=== PATIENT | male | born 1980 | race Caucasian/White ===

== ENCOUNTER 2017-08-05 19:11 | Emergency (ER) | payer OTHER ==
[2017-08-05] MEDS ORDERED: Sodium Chloride 0.9% 10 ML Syringe FLUSH PRN (19:47)
[2017-08-05] MEDS ORDERED: Ondansetron 4 MG/2 ML SDV IVPUSH ONE (19:47)
[2017-08-05] MEDS ORDERED: HYDROmorphone 1 MG/ML Syringe IVPUSH ONE ×2 (20:00→21:59)
[2017-08-05] MEDS ORDERED: Sodium Chloride 0.9% 1,000 ML IV SCH (20:00)
--- NOTE | 2017-08-05 20:17 | EDM.PDOC ---
ED HPI GENERAL MEDICAL PROBLEM - General Chief Complaint: Abdominal Pain Stated Complaint: BLOOD IN URINE AND VOMMITING Time Seen by Provider: 08/05/17 19:59 Source of Information: Reports: Patient History Limitations: Reports: No Limitations - History of Present Illness INITIAL COMMENTS - FREE TEXT/NARRATIVE: Patient is a 36-year-old male with a history of kidney stones who presents to the ED complaining of right flank and right abdomen discomfort with nausea vomiting. Patient describes the pain as a stabbing, sharp, constant pain that waxes and wanes in intensity. States he's noted some pain with urination, hematuria, increased frequency and decrease amount. States he's not had a bowel movement today and hasn't been passing any gas. He has no history of abdominal surgeries. He is concerned he is passing a kidney stones. Last time he passed kidney stones was in 2001 2007. Currently has no additional past medical history and currently taking no medications. No surgical history. No primary care provider here locally. Does not smoke, utilize alcohol, or recreational drugs. He is not taking any supplements. Right Abdomen Pain Score (Numeric/FACES): 8 - Related Data Allergies Allergy/AdvReac Type Severity Reaction Status Date / Time No Known Allergies Allergy Verified 08/05/17 19:40 Home Meds: Home Meds . [No Known Home Meds] 08/05/17 [History] Past Medical History Genitourinary History: Reports: Renal Calculus Social & Family History - Tobacco Use Smoking Status *Q: Never Smoker - Caffeine Use Caffeine Use: Reports: Tea - Recreational Drug Use Recreational Drug Use: No ED ROS GENERAL - Review of Systems Review Of Systems: See Below Constitutional: Reports: Decreased Appetite. Denies: Fever HEENT: Reports: No Symptoms Respiratory: Reports: No Symptoms Cardiovascular: Reports: No Symptoms GI/Abdominal: Reports: Abdominal Pain (Right lower quadrant) : Reports: Dysuria, Flank Pain, Frequency, Hematuria Skin: Reports: No Symptoms Neurological: Reports: No Symptoms ED EXAM, GI/ABD - Physical Exam Exam: See Below Exam Limited By: No Limitations General Appearance: Alert, WD/WN, No Apparent Distress Ears: Hearing Grossly Normal Nose: Normal Inspection Throat/Mouth: Normal Voice, No Airway Compromise Neck: Normal Inspection, Supple Respiratory/Chest: No Respiratory Distress, Lungs Clear, Normal Breath Sounds, No Accessory Muscle Use, Chest Non-Tender Cardiovascular: Normal Peripheral Pulses, Regular Rate, Rhythm, No Murmur GI/Abdominal Exam: Normal Bowel Sounds, Soft, No Organomegaly, No Distention, Tender (McBurney's point and suprapubic region.) Back Exam: Normal Inspection. No: CVA Tenderness (L), CVA Tenderness (R) Neurological: Alert, Oriented, CN II-XII Intact, Normal Cognition, No Motor/ Sensory Deficits Psychiatric: Normal Affect, Normal Mood Skin Exam: Warm, Dry, Intact, Normal Color Course - Vital Signs Last Recorded V/S: Last Vital Signs Temp 97.4 F 08/05/17 19:35 Pulse 87 08/05/17 19:35 Resp 28 H 08/05/17 19:35 BP 149/105 H 08/05/17 19:35 Pulse Ox 100 08/05/17 19:35 - Orders/Labs/Meds Orders: Active Orders 24 hr Category Date Time Status Peripheral IV Care [RC] . DIRECTED Care 08/05/17 19:47 Active Abdomen Pelvis w Cont [CT] Stat Exams 08/05/17 20:11 Taken Sodium Chloride 0.9% [Normal Saline] 1,000 ml Med 08/05/17 20:00 Active IV ASDIRECTED Sodium Chloride 0.9% [Saline Flush] Med 08/05/17 19:47 Active 10 ml FLUSH ASDIRECTED PRN Peripheral IV Insertion Adult [OM.PC] Stat Oth 08/05/17 19:47 Ordered Medication Orders Sodium Chloride (Normal Saline) 1,000 mls @ 250 mls/hr IV ASDIRECTED SASHA Last Admin: 08/05/17 20:09 Dose: 250 mls/hr Sodium Chloride (Saline Flush) 10 ml FLUSH ASDIRECTED PRN PRN Reason: Keep Vein Open Last Admin: 08/05/17 20:10 Dose: 10 ml Labs: Laboratory Tests 08/05/17 08/05/17 08/05/17 Range/Units 19:47 19:50 20:00 WBC 6.62 (4.23-9.07) K/mm3 RBC 5.24 (4.63-6.08) M/mm3 Hgb 16.0 (13.7-17.5) gm/L Hct 46.2 (40.1-51.0) % MCV 88.2 (79.0-92.2) fl MCH 30.5 (25.7-32.2) pg MCHC 34.6 (32.2-35.5) g/dl RDW Std Deviation 41.2 (35.1-43.9) fL Plt Count 341 H (163-337) K/mm3 MPV 9.1 L (9.4-12.3) fl Neut % (Auto) 64.4 (34.0-67.9) % Lymph % (Auto) 25.4 (21.8-53.1) % [place] % (Auto) 8.9 (5.3-12.2) % Eos % (Auto) 0.8 (0.8-7.0) Baso % (Auto) 0.3 (0.1-1.2) % Neut # (Auto) 4.27 (1.78-5.38) K/mm3 Lymph # (Auto) 1.68 (1.32-3.57) K/mm3 [place] # (Auto) 0.59 (0.30-0.82) K/mm3 Eos # (Auto) 0.05 (0.04-0.54) K/mm3 Baso # (Auto) 0.02 (0.01-0.08) K/mm3 Sodium 140 (136-145) mEq/L Potassium 4.2 (3.5-5.1) mEq/L Chloride 104 (98-107) mEq/L Carbon Dioxide 22 (21-32) mEq/L Anion Gap 18.2 H (5-15) BUN 14 (7-18) mg/dL Creatinine 1.3 (0.7-1.3) mg/dL Est Cr Clr Drug Dosing 80.64 mL/min Estimated GFR (MDRD) > 60 (>60) mL/min BUN/Creatinine Ratio 10.8 L (14-18) Glucose 118 H (74-106) mg/dL Calcium 9.3 (8.5-10.1) mg/dL Total Bilirubin 0.6 (0.2-1.0) mg/dL AST 64 H (15-37) U/L ALT 69 H (16-63) U/L Alkaline Phosphatase 61 (46-116) U/L C-Reactive Protein < 0.2 (<1.0) mg/dL Total Protein 7.9 (6.4-8.2) g/dl Albumin 3.9 (3.4-5.0) g/dl Globulin 4.0 gm/dL Albumin/Globulin Ratio 1.0 (1-2) Lipase 304 (73-393) U/L Urine Color Kalie H (Yellow) Urine Appearance Cloudy H (Clear) Urine pH 5.5 (5.0-8.0) Ur Specific [place] > or = 1.030 (1.005-1.030) Urine Protein 3+ H (Negative) Urine Glucose (UA) Negative (Negative) Urine Ketones Negative (Negative) Urine Occult Blood 3+ H (Negative) Urine Nitrite Negative (Negative) Urine Bilirubin 1+ H (Negative) Urine Urobilinogen 0.2 (0.2-1.0) Ur Leukocyte Esterase Negative (Negative) Urine RBC >100 H (0-5) /hpf Urine WBC 0-5 (0-5) /hpf Ur Epithelial Cells 0-5 (0-5) /hpf Urine Bacteria Moderate H (FEW) /hpf Urine Mucus Few (FEW) /hpf Meds: Medications Generic Name Dose Route Start Last Admin Trade Name Freq PRN Reason Stop Dose Admin Sodium Chloride 1,000 mls @ 250 mls/hr 08/05/17 20:00 08/05/17 20:09 Normal Saline IV 250 mls/hr ASDIRECTED SASHA Administration Sodium Chloride 10 ml 08/05/17 19:47 08/05/17 20:10 Saline Flush FLUSH 10 ml ASDIRECTED PRN Administration Keep Vein Open Discontinued Medications Generic Name Dose Route Start Last Admin Trade Name Freq PRN Reason Stop Dose Admin Diatrizoate Meglum/Diatrizoate Sod 90 ml 08/05/17 22:07 08/05/17 22:08 Gastrografin 37% PO 08/05/17 22:08 90 ml ONETIME ONE Administration Hydromorphone HCl 1 mg 08/05/17 20:00 08/05/17 20:04 Dilaudid IVPUSH 08/05/17 20:01 1 mg ONETIME ONE Administration Hydromorphone HCl 0.5 mg 08/05/17 21:59 08/05/17 22:08 Dilaudid IVPUSH 08/05/17 22:00 0.5 mg ONETIME ONE Administration Iopamidol 125 ml 08/05/17 22:07 08/05/17 22:09 Isovue-300 (61%) IVPUSH 08/05/17 22:08 125 ml ONETIME ONE Administration Ketorolac Tromethamine 30 mg 08/05/17 21:59 08/05/17 22:12 Toradol IVPUSH 08/05/17 22:00 30 mg ONETIME ONE Administration Metoclopramide HCl 7 mg 08/05/17 21:50 08/05/17 21:54 Reglan IVPUSH 08/05/17 21:51 7 mg ONETIME ONE Administration Ondansetron HCl 4 mg 08/05/17 19:47 08/05/17 20:00 Zofran IVPUSH 08/05/17 19:48 4 mg ONETIME ONE Administration Tamsulosin HCl 0.4 mg 08/05/17 21:59 08/05/17 22:09 Flomax PO 08/05/17 22:00 0.4 mg ONETIME ONE Administration - Re-Assessments/Exams Free Text/Narrative Re-Assessment/Exam: IV established with normal saline 250 mls per hour, Zofran 4 mg IVP, and Dilaudid 1 mg IVP. Initial labs and studies include CBC, chem 14, lipase, UA, and CRP. I also ordered bladder scan and CT the abdomen and pelvis with oral and IV contrast. On examination patient had pain to McBurney's point concerning for appendicitis. He does have a history of kidney stones and has some symptoms consistent for passing a stone. Thus I have opted to go ahead and obtain a CT of the abdomen and pelvis with oral and IV contrast to rule out appendicitis. Labs reviewed: CBC essentially normal. Sodium 140, potassium 4.2, AG 18.2, creatinine 1.3, glucose 118, AST 64, ALT 69, CRP less than 0.2, lipase 34. UA Kalie-colored, cloudy appearance, 3+ protein, 3+ occult blood, 1+ bilirubin, greater than 100 RBCs, bacteria moderate. 08/05/17 21:51 Per nursing patient has vomited all over the CT suite. Ordered Reglan 7 mg IV. 08/05/17 21:59 Patient complaining of some pain to the right lower quadrant of the abdomen and back. Ordered Dilaudid 0.5 mg IVP, Flomax 0.4 mg by mouth presumably for kidney stone, and Toradol 30 mg IVP. 08/05/17 22:14 CT of the abdomen and pelvis with contrast impression: There is a 3 mm stone in the distal right ureter. It is approximately 2 cm from the urinary bladder. It does result in mild right-sided hydronephrosis. Will discharge patient home with instructions as documented. Departure - Departure Time of Disposition: 22:15 Disposition: Home, Self-Care 01 Condition: Good Clinical Impression: Kidney stone on right side - Discharge Information Instructions: Pain Medicine Instructions, [id number], Nausea and Vomiting, Adult, [id number] Referrals: Uzair Eagle [Physician] - Forms: ED Department Discharge, ED Return to Work/School Form Additional Instructions: Strain all urine voids. Take Zofran 4 mg every 6 hours as needed for nausea and vomiting. For pain take ibuprofen 200 mg every 6 hours and Tylenol 650 mg every 6 hours in alternating fashion. Push the fluids. For pain not controlled with the above treatments please take [place] one tab every [address] while taking the [place]. Do not take Tylenol and [place] together. Take the Flomax 0.4 mg every day until stone passes. Follow-up with a urologist in the next week to 10 days if stone does not pass. Call and make an appointment. Return to the ED for any new or worsening symptoms. Do not drive this evening since receiving a sedative medication. - My Orders Last 24 Hours: My Active Orders 08/05/17 19:47 Peripheral IV Care [RC] . DIRECTED Sodium Chloride 0.9% [Saline Flush] 10 ml FLUSH ASDIRECTED PRN Peripheral IV Insertion Adult [OM.PC] Stat 08/05/17 20:00 Sodium Chloride 0.9% [Normal Saline] 1,000 ml IV ASDIRECTED 08/05/17 20:11 Abdomen Pelvis w Cont [CT] Stat - Assessment/Plan Last 24 Hours: My Active Orders 08/05/17 19:47 Peripheral IV Care [RC] . DIRECTED Sodium Chloride 0.9% [Saline Flush] 10 ml FLUSH ASDIRECTED PRN Peripheral IV Insertion Adult [OM.PC] Stat 08/05/17 20:00 Sodium Chloride 0.9% [Normal Saline] 1,000 ml IV ASDIRECTED 08/05/17 20:11 Abdomen Pelvis w Cont [CT] Stat
[2017-08-05] MEDS ORDERED: Metoclopramide 10 MG/2 ML SDV IVPUSH ONE (21:50)
[2017-08-05] MEDS ORDERED: Ketorolac 30 MG/ML SDV IVPUSH ONE (21:59)
[2017-08-05] MEDS ORDERED: Tamsulosin 0.4 MG Cap.ER PO ONE (21:59)
[2017-08-05] MEDS ORDERED: Iopamidol 612 MG/ML 150 ML Bottle IVPUSH ONE (22:07)
[2017-08-05] MEDS ORDERED: Diatrizoate Meglumine/Diatrizoate Sodium 37% 120 ML Bottle PO ONE (22:07)
--- NOTE | 2017-08-06 07:22 | CT ---
CT abdomen and pelvis Technique: Multiple axial sections were obtained from above the dome of the diaphragm inferiorly through the pubic symphysis. Intravenous and oral contrast was utilized. Delayed images were also obtained to the bladder. Comparison: No prior abdominal imaging. Findings: Slight asymmetric enhancement of the right kidney as compared to the left kidney with right kidney showing mild surrounding inflammatory change. Right ureter is dilated inferiorly to close to the UVJ. This finding is caused by a 3 mm obstructing stone located slightly proximal to the UVJ by about 2 cm. There is a 2 mm nonobstructing stone seen within the left kidney. Left side shows no abnormal ureteral calcifications or ureteral dilatation. Visualized lung bases show nothing acute. Liver shows no focal parenchymal abnormality. Spleen appears within normal limits. Adrenal glands show no nodule. Pancreas appears normal. Gallbladder shows no calcified gallstones. Aorta shows no aneurysmal dilatation. No retroperitoneal adenopathy or mesenteric abnormalities are seen. No pelvic mass or adenopathy is seen. No bowel dilatation is identified. Delayed images show contrast within the distal left ureter. No contrast excretion seen into the distal right ureter. Bone window settings were reviewed which appear within normal limits for the patient's age. Appendix not definitely visualized. Impression: 1. 3 mm obstructing stone within the distal right ureter. 2. 2 mm nonobstructing stone within the left kidney. 3. No other acute abnormality is seen. Diagnostic code #3 Agree with preliminary report issued by [facility] ([facility] preliminary report dictated on 08/05/17, at 11:10 PM Central Time)
== END 2017-08-05 22:55 | disposition home or self-care (01) ==
LOC: JD.ED 19:11 → EDBD 19:11 → JD.ED 22:55
DX: N13.2 Hydronephrosis with renal and ureteral calculous obstruction (principal)
CPT/HCPCS: 36415; 51798; 74177; 80053; 81001; 83690; 85025; 86140; 96361; 96374; 96375; 96376; 99284; A9270; J1170; J1885; J2405; J2765; J7040; J7050; Q9963; Q9967

== ENCOUNTER 2024-07-27 04:10 | Emergency (ER) | payer OTHER ==
[2024-07-27 05:32] LABS: CORONAVIRUS COVID-19 NAA NEGATIVE (NEGATIVE); INFLUENZA A NAA NEGATIVE (NEGATIVE); RESPIRATORY SYNCYTIAL VIR NAA NEGATIVE (NEGATIVE)
== END 2024-07-27 06:26 | disposition home or self-care (01) ==
LOC: JD.ED 04:10
DX: J02.9 Acute pharyngitis, unspecified (principal); R68.2 Dry mouth, unspecified; Z87.442 Personal history of urinary calculi
CPT/HCPCS: 0241U; 87651; 99283; 99282

== ENCOUNTER 2024-07-28 03:15 | Emergency (ER) | payer OTHER ==
[2024-07-28] MEDS ORDERED: Sodium Chloride 0.9% 10 ML Syringe FLUSH PRN (03:20)
[2024-07-28 03:34] LABS: APPEARANCE,URINE CLEAR (Clear); BILIRUBIN,URINE NEGATIVE (Negative); COLOR,URINE YELLOW (Yellow); GLUCOSE,URINE NEGATIVE (Negative); KETONES,URINE 1+ (Negative); LEUKOCYTE ESTERASE,URINE NEGATIVE (Negative); NITRITE,URINE NEGATIVE (Negative); OCCULT BLOOD,URINE TRACE-INTACT (Negative); PROTEIN,URINE NEGATIVE (Negative); UROBILINOGEN,URINE 0.2 (0.2-1.0)
[2024-07-28 03:42] LABS: BASOPHILS ABSOLUTE AUTO 0.1 K/mm3 (0.0-0.2); BASOPHILS PERCENT AUTO 0.6 % (0.0-1.0); EOSINOPHILS PERCENT AUTO 0.1 % (0.0-6.0); HEMATOCRIT 44.2 % (42.0-52.0); HEMOGLOBIN 15.3 gm/dl (14.0-18.0); IMMATURE GRAN ABSOLUTE AUTO 0.01 K/mm3 (0.00-0.05); IMMATURE GRAN PERCENT AUTO 0.1 % (0.0-0.4); LYMPHOCYTES ABSOLUTE AUTO 1.6 K/mm3 (1.0-4.8); LYMPHOCYTES PERCENT AUTO 19.1 % (24.0-44.0); MEAN CORPUSCULAR HEMOGLOBIN 30.4 pg (28.0-32.0); MEAN CORPUSCULAR HGB CONC 34.6 g/dl (32.0-36.0); MEAN CORPUSCULAR VOLUME 87.9 fl (83.0-99.0); MONOCYTES ABSOLUTE AUTO 0.6 K/mm3 (0.0-0.8); MONOCYTES PERCENT AUTO 6.8 % (0.0-8.0); NEUTROPHILS PERCENT AUTO 73.3 % (41.0-71.0); PLATELET COUNT,PLT 341 K/mm3 (150-400); RED BLOOD CELL COUNT 5.03 M/mm3 (4.52-5.90); WHITE BLOOD CELL COUNT,WBC 8.18 K/mm3 (3.9-11.3)
[2024-07-28 04:06] LABS: INR 1.03; PROTHROMBIN TIME 10.9 SECONDS (9.7-12.0)
[2024-07-28 04:07] LABS: PTT,PARTIAL THROMBOPLSTIN TIME 25.6 SECONDS (21.7-31.4)
[2024-07-28 04:14] LABS: LACTIC ACID 1.3 mmol/L (0.4-2.0)
[2024-07-28 04:22] LABS: A/G RATIO 1.1 (1-2); ALANINE AMINOTRANSFERASE,ALT 83 U/L (16-63); ALKALINE PHOSPHATASE 61 U/L (46-116); ANION GAP 10.5 (5-15); ASPARTATE AMNIOTRANSFERASE,AST 41 U/L (15-37); BILIRUBIN TOTAL 0.9 mg/dL (0.2-1.0); BLOOD UREA NITROGEN,BUN 9 mg/dL (7-18); CALCIUM 9.1 mg/dL (8.5-10.1); CARBON DIOXIDE,CO2 27 mEq/L (21-32); CHLORIDE,CL 103 mEq/L (98-107); CREATININE 0.9 mg/dL (0.7-1.3); ESTIMATED GFR 109 mL/min (>60); GLUCOSE RANDOM 99 mg/dL (70-99); POTASSIUM,K 3.5 mEq/L (3.5-5.1); PROTEIN TOTAL,TP 7.7 g/dl (6.4-8.2); SODIUM,NA 137 mEq/L (136-145); TROPONIN I HIGH SENSITIVITY 5 pg/mL (<=76)
[2024-07-28 04:27] LABS: BACTERIA,URINE FEW /hpf (FEW); EPITHELIAL CELLS,URINE 0-5 /hpf (0-5); RBC,URINE 0-5 /hpf (0-5)
[2024-07-28 04:28] LABS: MUCUS,URINE NOT SEEN /hpf (FEW)
[2024-07-28 04:32] LABS: BARBITURATE SCREEN,URINE NEGATIVE (CUTOFF=200); BENZODIAZEPINES SCREEN,URINE NEGATIVE (CUTOFF=150); BUPRENORPHINE SCREEN,URINE NEGATIVE (CUTOFF=10); METHADONE SCREEN, URINE NEGATIVE (CUT0FF=200); METHAMPHETAMINES SCREEN, URINE NEGATIVE (CUTOFF=500); OXYCODONE SCREEN,URINE NEGATIVE (CUT0FF=100); THC SCREEN,URINE 20 NG/ML NEGATIVE (CUTOFF=50)
[2024-07-28 04:44] LABS: AMPHETAMINES SCREEN, URINE NEGATIVE (CUTOFF=500)
[2024-07-28 05:07] LABS: CORONAVIRUS COVID-19 NAA NEGATIVE (NEGATIVE); INFLUENZA A NAA NEGATIVE (NEGATIVE); RESPIRATORY SYNCYTIAL VIR NAA NEGATIVE (NEGATIVE)
[2024-07-28] MEDS: Azithromycin 250 MG Tab PO SCH (07:24)
== END 2024-07-28 07:46 | disposition home or self-care (01) ==
LOC: JD.ED 03:15
DX: R41.82 Altered mental status, unspecified (principal); J32.9 Chronic sinusitis, unspecified
CPT/HCPCS: 0241U; 36415; 71045; 80053; 80306; 80307; 81001; 83605; 83735; 84443; 84484; 85025; 85610; 85730; 93005; 99285; A9270; C1758; 93010; 99284

== ENCOUNTER 2024-08-07 20:33 | Emergency (ER) | payer OTHER ==
[2024-08-07 22:10] LABS: BASOPHILS ABSOLUTE AUTO 0.1 K/mm3 (0.0-0.2); BASOPHILS PERCENT AUTO 0.9 % (0.0-1.0); EOSINOPHILS ABSOLUTE AUTO 0.1 K/mm3 (0.0-0.4); EOSINOPHILS PERCENT AUTO 0.5 % (0.0-6.0); HEMATOCRIT 45.9 % (42.0-52.0); IMMATURE GRAN ABSOLUTE AUTO 0.02 K/mm3 (0.00-0.05); IMMATURE GRAN PERCENT AUTO 0.2 % (0.0-0.4); LYMPHOCYTES ABSOLUTE AUTO 2.6 K/mm3 (1.0-4.8); LYMPHOCYTES PERCENT AUTO 28.4 % (24.0-44.0); MEAN CORPUSCULAR HEMOGLOBIN 30.9 pg (28.0-32.0); MEAN CORPUSCULAR HGB CONC 34.9 g/dl (32.0-36.0); MEAN CORPUSCULAR VOLUME 88.8 fl (83.0-99.0); MEAN PLATELET VOLUME 9.2 fl (9.4-12.4); MONOCYTES ABSOLUTE AUTO 0.9 K/mm3 (0.0-0.8); MONOCYTES PERCENT AUTO 9.4 % (0.0-8.0); NEUTROPHILS ABSOLUTE AUTO 5.5 K/mm3 (1.8-7.7); NEUTROPHILS PERCENT AUTO 60.6 % (41.0-71.0); PLATELET COUNT,PLT 332 K/mm3 (150-400); RED BLOOD CELL COUNT 5.17 M/mm3 (4.52-5.90); WHITE BLOOD CELL COUNT,WBC 9.15 K/mm3 (3.9-11.3)
[2024-08-07 22:21] LABS: BARBITURATE SCREEN,URINE NEGATIVE (CUTOFF=200); BENZODIAZEPINES SCREEN,URINE NEGATIVE (CUTOFF=150); BUPRENORPHINE SCREEN,URINE NEGATIVE (CUTOFF=10); METHADONE SCREEN, URINE NEGATIVE (CUT0FF=200); METHAMPHETAMINES SCREEN, URINE NEGATIVE (CUTOFF=500); OXYCODONE SCREEN,URINE NEGATIVE (CUT0FF=100); THC SCREEN,URINE 20 NG/ML NEGATIVE (CUTOFF=50)
[2024-08-07 22:23] LABS: AMPHETAMINES SCREEN, URINE NEGATIVE (CUTOFF=500)
[2024-08-07 22:39] LABS: A/G RATIO 1.1 (1-2); ALBUMIN 4.1 g/dl (3.4-5.0); ANION GAP 13.8 (5-15); BILIRUBIN TOTAL 0.8 mg/dL (0.2-1.0); CALCIUM 9.5 mg/dL (8.5-10.1); EST CRCL DRUG DOSING (CG) 101.45 mL/min; POTASSIUM,K 3.8 mEq/L (3.5-5.1); PROTEIN TOTAL,TP 7.9 g/dl (6.4-8.2); TSH 1.796 uIU/mL (0.358-3.74)
== END 2024-08-08 00:12 ==
LOC: JD.ED 20:33
DX: R45.851 Suicidal ideations (principal)
CPT/HCPCS: 36415; 80053; 80143; 80179; 80306; 80307; 84443; 85025; 93005; 93010; 99283; 99285; U0002